=== PATIENT | male | born 1965 | race Caucasian/White ===

== ENCOUNTER 2018-05-10 10:19 | Emergency (ER) | payer BC ==
[~2018-05-10] VITALS: Ht 180.3 cm; Wt 115.8 kg
[2018-05-10] MEDS ORDERED: ULTRAM50 MG PO (11:14)
[2018-05-10 11:33] VITALS: BP 145/98
== END 2018-05-10 11:46 | disposition home or self-care (01) ==
LOC: EME 10:19
DX: S40.011A Contusion of right shoulder, initial encounter (principal); S50.311A Abrasion of right elbow, initial encounter; W01.0XXA Fall on same level from slipping, tripping and stumbling without subsequent striking against object, initial encounter; Z95.1 Presence of aortocoronary bypass graft; Z95.2 Presence of prosthetic heart valve
CPT/HCPCS: 73010; 99281; 99283